=== PATIENT | female | born 1965 | race Caucasian/White ===

== ENCOUNTER 2021-07-22 12:54 | Emergency (ER) | payer OTHER ==
[~2021-07-22 12:54] MED LIST: CEFUROXIME500 MG PO; CORTIZONE-1057 G1 TP; IBUPROFEN600 MG PO; ONDANSETRON ODT4 MG SL; PYRIDIUM200 MG PO
[2021-07-22 13:49] LABS: HEMOGLOBIN 17.4 gm/dl (12.3-15.3); RED BLOOD COUNT 4.92 M/UL (4.00-5.10)
[2021-07-22 14:29] LABS: BUN/CREATININE RATIO 21 (0-10)
== END 2021-07-22 19:02 | disposition home or self-care (01) ==
LOC: ER1 12:54
PROVIDERS: Nurse Practitioner
DX: K29.70 Gastritis, unspecified, without bleeding (principal); R07.9 Chest pain, unspecified; Z20.822 Contact with and (suspected) exposure to COVID-19; I25.2 Old myocardial infarction; F17.210 Nicotine dependence, cigarettes, uncomplicated
CPT/HCPCS: 71045; 80053; 80307; 81001; 82550; 82553; 83690; 83874; 84484; 85025; 85610; 85730; 93005; 96374; 99285; J2550; Q9967; U0002

== ENCOUNTER 2021-07-24 06:08 | Emergency (ER) | payer OTHER ==
[2021-07-24 06:26] LABS: RED BLOOD COUNT 3.48 M/UL (4.00-5.10); WHITE BLOOD COUNT 16.1 K/UL (4.5-11.0)
[2021-07-24 07:02] LABS: BUN/CREATININE RATIO 23 (0-10)
== END 2021-07-24 09:30 | disposition other institution (70) ==
LOC: ER1 06:08
PROVIDERS: Emergency Medicine; Family Medicine
DX: K66.1 Hemoperitoneum (principal); Z20.822 Contact with and (suspected) exposure to COVID-19
CPT/HCPCS: 36430; 36600; 51702; 80053; 80307; 81001; 82140; 82272; 82550; 82553; 82803; 83605; 83690; 83874; 84484; 85018; 85025; 85610; 86850; 86900; 86901; 86920; 93005; 96374; 96375; 99284; J2270; J2405; P9016; Q9967; U0002

== ENCOUNTER 2021-12-26 20:17 | Emergency (ER) | payer OTHER ==
[2021-12-26 21:29] LABS: HEMOGLOBIN 16.5 gm/dl (12.3-15.3); RED BLOOD COUNT 4.74 M/UL (4.00-5.10); WHITE BLOOD COUNT 18.8 K/UL (4.5-11.0)
[2021-12-27] MEDS ORDERED: ZOFRAN ODT 4 MG4 MG GT (01:26)
[2021-12-27 01:57] LABS: WHITE BLOOD COUNT 14.2 K/UL (4.5-11.0)
[2021-12-27 01:58] LABS: RED BLOOD COUNT 4.13 M/UL (4.00-5.10)
== END 2021-12-27 01:45 | disposition home or self-care (01) ==
LOC: ER1 20:17
PROVIDERS: Family Medicine
DX: R11.2 Nausea with vomiting, unspecified (principal); R19.7 Diarrhea, unspecified; I10 Essential (primary) hypertension; F17.210 Nicotine dependence, cigarettes, uncomplicated
CPT/HCPCS: 80053; 81001; 83605; 84703; 85025; 85027; 87040; 93005; 96374; 96375; 99284; J1885; J2405; J7120